=== PATIENT | female | born 1975 | race Caucasian/White ===

== ENCOUNTER 2018-02-18 15:34 | Inpatient (IN) | payer OTHER ==
[~2018-02-18] VITALS: Ht 160 cm; Wt 145.1 kg
[~2018-02-18 15:34] MED LIST: ADVIL100 MG PO; ALBU90OI6 INH; AMOX250 PO; ARIP10 PO; BIRTH CONTROL; CLON.5 PO; CLON1 PO; CYAN500 PO; CYCL10 PO; DESV50 PO; DIVA500EC PO; ERGO50000 PO; HYDPAM25 PO; HYDR1TAB94 PO; LEVSOD75 PO; OXYACE5T PO; OXYC5 PO; PANT40; PANT40 PO; PROM25 PO; RANI150 PO; Verotin-Gr Cap1 EACH PO; ZESTORETIC 20-121 EA PO
[2018-02-18] MEDS ORDERED: LEVSOD125 PO (15:49)
[2018-02-18] MEDS ORDERED: PANT40 PO (15:50)
[2018-02-18] MEDS ORDERED: CETI5 PO (15:50)
[2018-02-18] MEDS ORDERED: AMLODIPINE-VAL1 EAC3 PO (15:51)
[2018-02-18] MEDS ORDERED: LAMO100 PO (15:51)
[2018-02-18] MEDS ORDERED: CYCL10 PO (15:52)
[2018-02-18] MEDS ORDERED: TRAZ50 PO (15:52)
[2018-02-18] MEDS ORDERED: IBUP800 (15:53)
[2018-02-18] MEDS ORDERED: NYST100000 (15:53)
[2018-02-18] MEDS ORDERED: CLON.1 PO (15:54)
[2018-02-18 16:28] LABS: BASOPHILS ABSOLUTE AUTO 0.05 K/mm3 (0.00-0.23); BASOPHILS PERCENT AUTO 0 % (0-2); EOSINOPHILS ABSOLUTE AUTO 0.23 K/mm3 (0.00-0.68); EOSINOPHILS PERCENT AUTO 2 % (0-6); Hematocrit 42.9 % (33.0-51.0); Hemoglobin 14.5 g/dL (11.5-16.0); IMMATURE GRAN PERCENT AUTO 1 % (0-1); LYMPHOCYTES ABSOLUTE AUTO 1.08 K/mm3 (0.84-5.20); LYMPHOCYTES PERCENT AUTO 8 % (21-46); MONOCYTES ABSOLUTE AUTO 0.39 K/mm3 (0.16-1.47); MONOCYTES PERCENT AUTO 3 % (4-13); Mean Corpuscular HGB 32.3 pg (26.0-34.0); Mean Corpuscular HGB Conc 33.8 g/dL (31.5-36.5); Mean Corpuscular Volume 96 fL (80-100); Mean Platelet Volume 8.8 fL (9.1-12.4); NEUTROPHILS PERCENT AUTO 87 % (41-73); Platelet Count 312 K/mm3 (150-400); RDW Coefficient Variation 15.3 % (11.7-14.2); RDW Standard Deviation 53.2 fL (35.1-46.3); Red Blood Cell Count 4.49 M/mm3 (3.80-5.20); White Blood Cell Count 13.75 K/mm3 (4.00-11.30)
[2018-02-18 16:46] LABS: Alanine Aminotransfer (ALT/SGP 44 U/L (12-78); Albumin, Blood 3.6 g/dL (3.4-5.0); Albumin/Globulin Ratio 0.9 (0.8-1.8); Alk Phos 124 U/L (50-136); Anion Gap 7 mmol/L (6-16); Aspartate Aminotrans (AST/SGOT 35 U/L (12-37); Bilirubin, Total 0.3 mg/dL (0.1-1.0); Blood Urea Nitrogen 9 mg/dL (8-24); Bun/Creatinine Ratio 12.7 (12.0-20.0); CO2, Blood 27 mmol/L (21-32); Calcium, Blood 8.9 mg/dL (8.5-10.1); Chloride, Blood 100 mmol/L (98-108); Creatinine, Blood 0.71 mg/dL (0.40-1.00); Globulin, Blood 4.1 g/dL (2.2-4.0); Glomerular Filtration Rate >60 (60-); Glucose, Blood 108 mg/dL (70-99); Potassium, Blood 4.1 mmol/L (3.5-5.5); Sodium, Blood 134 mmol/L (136-145); Total Protein, Blood 7.7 g/dL (6.4-8.2)
[2018-02-18] MEDS ORDERED: COSENTYX S150 MG/1 M SC (18:53)
[2018-02-18 20:26] LABS: Hemoglobin 14.1 g/dL (11.5-16.0)
[2018-02-19 02:27] LABS: BASOPHILS ABSOLUTE AUTO 0.04 K/mm3 (0.00-0.23); BASOPHILS PERCENT AUTO 0 % (0-2); EOSINOPHILS ABSOLUTE AUTO 0.28 K/mm3 (0.00-0.68); EOSINOPHILS PERCENT AUTO 2 % (0-6); Hematocrit 40.1 % (33.0-51.0); Hemoglobin 13.4 g/dL (11.5-16.0); IMMATURE GRAN ABSOLUTE AUTO 0.08 K/mm3 (0.00-0.10); IMMATURE GRAN PERCENT AUTO 1 % (0-1); LYMPHOCYTES ABSOLUTE AUTO 1.39 K/mm3 (0.84-5.20); LYMPHOCYTES PERCENT AUTO 12 % (21-46); MONOCYTES ABSOLUTE AUTO 0.47 K/mm3 (0.16-1.47); MONOCYTES PERCENT AUTO 4 % (4-13); Mean Corpuscular HGB 32.4 pg (26.0-34.0); Mean Corpuscular HGB Conc 33.4 g/dL (31.5-36.5); Mean Corpuscular Volume 97 fL (80-100); Mean Platelet Volume 8.6 fL (9.1-12.4); NEUTROPHILS ABSOLUTE AUTO 9.73 K/mm3 (1.96-9.15); NEUTROPHILS PERCENT AUTO 81 % (41-73); Platelet Count 272 K/mm3 (150-400); RDW Coefficient Variation 15.4 % (11.7-14.2); RDW Standard Deviation 54.5 fL (35.1-46.3); Red Blood Cell Count 4.14 M/mm3 (3.80-5.20); White Blood Cell Count 11.99 K/mm3 (4.00-11.30)
[2018-02-19 02:43] LABS: Anion Gap 6 mmol/L (6-16); Blood Urea Nitrogen 7 mg/dL (8-24); Bun/Creatinine Ratio 9.3 (12.0-20.0); CO2, Blood 28 mmol/L (21-32); Chloride, Blood 102 mmol/L (98-108); Creatinine, Blood 0.76 mg/dL (0.40-1.00); Glomerular Filtration Rate >60 (60-); Glucose, Blood 105 mg/dL (70-99); Potassium, Blood 3.7 mmol/L (3.5-5.5); Sodium, Blood 136 mmol/L (136-145)
[2018-02-19 08:17] LABS: Hematocrit 39.5 % (33.0-51.0); Hemoglobin 13.2 g/dL (11.5-16.0)
[2018-02-19 14:10] LABS: Hemoglobin 13.6 g/dL (11.5-16.0)
[2018-02-20 05:58] LABS: Hemoglobin 13.7 g/dL (11.5-16.0); Mean Corpuscular HGB 32.9 pg (26.0-34.0); Mean Corpuscular HGB Conc 33.4 g/dL (31.5-36.5); Mean Corpuscular Volume 98 fL (80-100); Mean Platelet Volume 8.6 fL (9.1-12.4); Platelet Count 273 K/mm3 (150-400); RDW Coefficient Variation 15.5 % (11.7-14.2); RDW Standard Deviation 55.6 fL (35.1-46.3); Red Blood Cell Count 4.17 M/mm3 (3.80-5.20); White Blood Cell Count 8.65 K/mm3 (4.00-11.30)
[2018-02-20 06:24] LABS: Anion Gap 7 mmol/L (6-16); Blood Urea Nitrogen 5 mg/dL (8-24); Bun/Creatinine Ratio 6.8 (12.0-20.0); CO2, Blood 28 mmol/L (21-32); Calcium, Blood 8.2 mg/dL (8.5-10.1); Chloride, Blood 103 mmol/L (98-108); Creatinine, Blood 0.74 mg/dL (0.40-1.00); Glomerular Filtration Rate >60 (60-); Glucose, Blood 97 mg/dL (70-99); Potassium, Blood 3.7 mmol/L (3.5-5.5); Sodium, Blood 138 mmol/L (136-145)
[2018-02-20 22:22] LABS: Anion Gap 6 mmol/L (6-16); Blood Urea Nitrogen 5 mg/dL (8-24); Bun/Creatinine Ratio 7.6 (12.0-20.0); CO2, Blood 28 mmol/L (21-32); Calcium, Blood 7.9 mg/dL (8.5-10.1); Chloride, Blood 101 mmol/L (98-108); Creatinine, Blood 0.66 mg/dL (0.40-1.00); Glomerular Filtration Rate >60 (60-); Glucose, Blood 119 mg/dL (70-99); Potassium, Blood 3.9 mmol/L (3.5-5.5); Sodium, Blood 135 mmol/L (136-145)
[2018-02-21 11:48] LABS: Adenovirus F 40/41 Not Detected (NOT DETECT); Astrovirus Not Detected (NOT DETECT); Campylobacter Sp Not Detected (NOT DETECT); Cryptosporidium Not Detected (NOT DETECT); Cyclospora Cayetanensis Not Detected (NOT DETECT); E. Coli O157 Not Detected (NOT DETECT); Entamoeba Histolytica Not Detected (NOT DETECT); Enteroaggregative E. coli-EAEC Not Detected (NOT DETECT); Enteropathogenic E. coli-EPEC Not Detected (NOT DETECT); Enterotoxigenic E. coli-ETEC Not Detected (NOT DETECT); Giardia Lamblia Not Detected (NOT DETECT); Norovirus GI/GII Not Detected (NOT DETECT); Plesiomonas Shigelloides Not Detected (NOT DETECT); Rotavirus A Not Detected (NOT DETECT); Salmonella Sp Not Detected (NOT DETECT); Sapovirus Not Detected (NOT DETECT); Shiga Toxin-prod E. coli-STEC Not Detected (NOT DETECT); Shigella/Enteroin E. coli-EIEC Not Detected (NOT DETECT); Vibrio Cholerae Not Detected (NOT DETECT); Vibrio Sp Not Detected (NOT DETECT); Yersinia Enterocolitica Not Detected (NOT DETECT)
== END 2018-02-21 13:39 | disposition left against medical advice (07) | DRG 392 ==
LOC: ER 15:34 → MEDS 17:27
PROVIDERS: Emergency Medicine; Internal Medicine; Internal Medicine Gastroenterology; Nurse Practitioner Acute Care
PROC: 0DJD8ZZ Inspection of Lower Intestinal Tract, Via Natural or Artificial Opening Endoscopic (ICD-10-PCS; principal; 2018-02-20 10:00)
DX: K52.89 Other specified noninfective gastroenteritis and colitis (principal); E87.1 Hypo-osmolality and hyponatremia; K62.5 Hemorrhage of anus and rectum; Z68.43 Body mass index [BMI] 50.0-59.9, adult; K64.8 Other hemorrhoids; K52.9 Noninfective gastroenteritis and colitis, unspecified; I10 Essential (primary) hypertension; F31.9 Bipolar disorder, unspecified; L40.9 Psoriasis, unspecified; E66.01 Morbid (severe) obesity due to excess calories
CPT/HCPCS: 36415; 46600; 74176; 80048; 80053; 83690; 85014; 85018; 85025; 85027; 87507; 96361; 96374; 96375; 96376; 99285; C9113; J0744; J2405; J2550; J3010; J7030; J7120

== ENCOUNTER 2018-02-23 06:47 | Emergency (ER) | payer OTHER ==
[~2018-02-23] VITALS: Ht 160 cm; Wt 140.6 kg
[~2018-02-23 06:47] MED LIST changes: +AMLODIPINE-VAL1 EAC3 PO; +CETI5 PO; +CLON.1 PO; +COSENTYX S150 MG/1 M SC; +IBUP800; +LAMO100 PO; +LEVSOD125 PO; +NYST100000; +TRAZ50 PO
[2018-02-23 07:35] LABS: BASOPHILS ABSOLUTE AUTO 0.05 K/mm3 (0.00-0.23); BASOPHILS PERCENT AUTO 0 % (0-2); EOSINOPHILS ABSOLUTE AUTO 0.22 K/mm3 (0.00-0.68); EOSINOPHILS PERCENT AUTO 2 % (0-6); Hematocrit 42.8 % (33.0-51.0); Hemoglobin 14.4 g/dL (11.5-16.0); IMMATURE GRAN PERCENT AUTO 2 % (0-1); LYMPHOCYTES ABSOLUTE AUTO 1.29 K/mm3 (0.84-5.20); LYMPHOCYTES PERCENT AUTO 10 % (21-46); MONOCYTES ABSOLUTE AUTO 0.67 K/mm3 (0.16-1.47); MONOCYTES PERCENT AUTO 5 % (4-13); Mean Corpuscular HGB 31.7 pg (26.0-34.0); Mean Corpuscular HGB Conc 33.6 g/dL (31.5-36.5); NEUTROPHILS ABSOLUTE AUTO 10.39 K/mm3 (1.96-9.15); NEUTROPHILS PERCENT AUTO 81 % (41-73); Platelet Count 257 K/mm3 (150-400); RDW Coefficient Variation 15.3 % (11.7-14.2); Red Blood Cell Count 4.54 M/mm3 (3.80-5.20); White Blood Cell Count 12.82 K/mm3 (4.00-11.30)
[2018-02-23 07:42] LABS: Mean Corpuscular Volume 94 fL (80-100)
[2018-02-23 07:44] LABS: Alanine Aminotransfer (ALT/SGP 47 U/L (12-78); Albumin, Blood 3.3 g/dL (3.4-5.0); Albumin/Globulin Ratio 0.8 (0.8-1.8); Alk Phos 95 U/L (50-136); Anion Gap 8 mmol/L (6-16); Aspartate Aminotrans (AST/SGOT 43 U/L (12-37); Bilirubin, Total 0.5 mg/dL (0.1-1.0); Blood Urea Nitrogen 6 mg/dL (8-24); Bun/Creatinine Ratio 8.7 (12.0-20.0); CO2, Blood 32 mmol/L (21-32); Calcium, Blood 8.3 mg/dL (8.5-10.1); Chloride, Blood 95 mmol/L (98-108); Creatinine, Blood 0.69 mg/dL (0.40-1.00); Glomerular Filtration Rate >60 (60-); Glucose, Blood 121 mg/dL (70-99); Potassium, Blood 3.5 mmol/L (3.5-5.5); Sodium, Blood 135 mmol/L (136-145); Total Protein, Blood 7.3 g/dL (6.4-8.2)
[2018-02-23] MEDS ORDERED: Zofran Odt4 MG SL (09:42)
== END 2018-02-23 10:03 | disposition home or self-care (01) ==
LOC: ER 06:47
PROVIDERS: Emergency Medicine
DX: K59.00 Constipation, unspecified (principal); F31.9 Bipolar disorder, unspecified; R10.32 Left lower quadrant pain; T47.3X5A Adverse effect of saline and osmotic laxatives, initial encounter; Z88.5 Allergy status to narcotic agent; Z88.1 Allergy status to other antibiotic agents; Z88.8 Allergy status to other drugs, medicaments and biological substances; Z79.899 Other long term (current) drug therapy; F32.9 Major depressive disorder, single episode, unspecified; F17.210 Nicotine dependence, cigarettes, uncomplicated
CPT/HCPCS: 74018; 80053; 83690; 85025; 96361; 96374; 96375; 99283; C9113; J1200; J1630; J1885; J7030

== ENCOUNTER 2018-04-25 08:02 | Day surgery (SDC) | payer OTHER ==
[~2018-04-25] VITALS: Ht 160 cm; Wt 142.9 kg
[~2018-04-25 08:02] MED LIST changes: +AMLODIPINE-VALSARTAN PO; +COSENTYX P150 MG/1 M SC; +Cyclobenzaprine5 MG PO; +MOTRIN PM CAPL1 EACH PO; +Zofran Odt4 MG SL
== END 2018-04-25 11:13 | disposition home or self-care (01) ==
LOC: ORSCMMR 08:02 → ORD 09:30 → ORSCMMR 09:30
PROVIDERS: Internal Medicine Gastroenterology
PROC: 0DBP8ZX Excision of Rectum, Via Natural or Artificial Opening Endoscopic, Diagnostic (ICD-10-PCS; principal; 2018-04-25 09:30)
PROC: 0DBL8ZX Excision of Transverse Colon, Via Natural or Artificial Opening Endoscopic, Diagnostic (ICD-10-PCS; principal; 2018-04-25 09:30)
PROC: 0DBN8ZX Excision of Sigmoid Colon, Via Natural or Artificial Opening Endoscopic, Diagnostic (ICD-10-PCS; principal; 2018-04-25 09:30)
DX: K62.5 Hemorrhage of anus and rectum (principal); D12.3 Benign neoplasm of transverse colon; K63.5 Polyp of colon; K62.1 Rectal polyp; K64.8 Other hemorrhoids; I10 Essential (primary) hypertension; J44.9 Chronic obstructive pulmonary disease, unspecified; K21.9 Gastro-esophageal reflux disease without esophagitis; E66.01 Morbid (severe) obesity due to excess calories; Z68.43 Body mass index [BMI] 50.0-59.9, adult; Z79.899 Other long term (current) drug therapy
CPT/HCPCS: J7120

== ENCOUNTER 2019-03-24 17:02 | Inpatient (IN) | payer OTHER ==
[~2019-03-24] VITALS: Ht 160 cm; Wt 113.6 kg
[~2019-03-24 17:02] MED LIST changes: +IBU800 MG PO; +KHEDEZLA100 MG PO; +Lamictal200 MG PO; -MOTRIN PM CAPL1 EACH PO; +NP THYROID90 MG PO; +Naltrexone HCl50 MG PO; +PRENATAL DHA200 MG PO; +PROG100 PO; +Pepcid40 MG PO; +Zanaflex4 M1 PO; +Zofran8 MG PO
[2019-03-24 17:26] LABS: BASOPHILS ABSOLUTE AUTO 0.03 K/mm3 (0.00-0.23); BASOPHILS PERCENT AUTO 0 % (0-2); EOSINOPHILS ABSOLUTE AUTO 0.05 K/mm3 (0.00-0.68); EOSINOPHILS PERCENT AUTO 0 % (0-6); Hematocrit 36.2 % (33.0-51.0); Hemoglobin 12.5 g/dL (11.5-16.0); IMMATURE GRAN ABSOLUTE AUTO 0.23 K/mm3 (0.00-0.10); IMMATURE GRAN PERCENT AUTO 1 % (0-1); LYMPHOCYTES ABSOLUTE AUTO 1.34 K/mm3 (0.84-5.20); LYMPHOCYTES PERCENT AUTO 8 % (21-46); MONOCYTES ABSOLUTE AUTO 0.69 K/mm3 (0.16-1.47); MONOCYTES PERCENT AUTO 4 % (4-13); Mean Corpuscular HGB 32.7 pg (26.0-34.0); Mean Corpuscular HGB Conc 34.5 g/dL (31.5-36.5); Mean Corpuscular Volume 95 fL (80-100); Mean Platelet Volume 9.7 fL (9.1-12.4); NEUTROPHILS ABSOLUTE AUTO 13.96 K/mm3 (1.96-9.15); NEUTROPHILS PERCENT AUTO 86 % (41-73); Platelet Count 249 K/mm3 (150-400); RDW Coefficient Variation 19.5 % (11.7-14.2); RDW Standard Deviation 68.5 fL (35.1-46.3); Red Blood Cell Count 3.82 M/mm3 (3.80-5.20)
[2019-03-24 17:47] LABS: Alanine Aminotransfer (ALT/SGP 98 U/L (12-78); Albumin/Globulin Ratio 0.8 (0.8-1.8); Alk Phos 375 U/L (50-136); Anion Gap 14 mmol/L (6-16); Aspartate Aminotrans (AST/SGOT 150 U/L (12-37); Bilirubin, Total 1.6 mg/dL (0.1-1.0); Blood Urea Nitrogen 9 mg/dL (8-24); Bun/Creatinine Ratio 15.4 (12.0-20.0); CO2, Blood 29 mmol/L (21-32); Calcium, Blood 9.1 mg/dL (8.5-10.1); Chloride, Blood 89 mmol/L (98-108); Creatinine, Blood 0.59 mg/dL (0.40-1.00); Globulin, Blood 3.8 g/dL (2.2-4.0); Glomerular Filtration Rate >60 (60-); Glucose, Blood 120 mg/dL (70-99); Potassium, Blood 2.9 mmol/L (3.5-5.5); Sodium, Blood 132 mmol/L (136-145); Total Protein, Blood 6.8 g/dL (6.4-8.2)
[2019-03-24 18:04] LABS: Ethanol (Alcohol), Blood, Med <3 mg/dL
[2019-03-24 19:30] LABS: International Normalized Ratio 1.07; Prothrombin Time Results 11.3 Sec (9.7-11.5)
[2019-03-24] MEDS ORDERED: FAMO40 PO (19:54)
[2019-03-24] MEDS ORDERED: ALL DAY ALLERGY10 MG PO (19:55)
[2019-03-24] MEDS ORDERED: Verotin-Gr Cap1 EACH PO (19:56)
[2019-03-24] MEDS ORDERED: MUCUS RELIEF D PO (19:57)
--- NOTE | 2019-03-24 21:36 | NUR ---
ARRIVAL PT ARRIVED TO UNIT APPROX. 2004 VIA [facility] FROM ED. PT ABLE TO TRANSFER FROM [facility] TO BED WITH ONE PERSON ASSIST. PT REPORTS SOME DIZIINESS WITH THIS. PT REPORTS FEELINGS EXTREMLY WEEK COMPARED TO HER BASELINE. ORIENTED PT TO ROOM, UNIT AND POLICIES. ADMISSION PROCESS COMPLETED. ASSESSMENT COMPLETED. VITAL SIGNS STABLE ALTHOUGHT BLOOD PRESURE SLIGHTLY ELVEATED WILL CONTINUE TO MONITOR THIS AND NOTIFIY PHYSICIAN IF CONTINUES. HEART RHYTH SINUS TACHYCARDIA IN 111. TELEMETRY IN PLACE. PT REPROTS NAUSEA BUT NO VOMITING AT THIS TIME. NO S/SX OF ALCHOL WITHDRAW AT THIS TIME. WILL COMPLETED BASELINE CIWA AT THIS TIME AND MONITOR PER ORDERS AFTER THIS. BED IN LOW POSITION, CALL LIGHT IN REACH, PT DENIES ANY NEEDS AT THIS TIME.
--- NOTE | 2019-03-24 21:39 | NUR ---
NOTE PT ARRIVED TO UNIT FROM ED APPROX 2004. AT THIS TIME NOTICED COBAND IN PLACE ON RIGHT WRIST. UPON REMOVAL OF COBAND PART OF AN IV WAS FOUND THIS BE PARTIAL LEFT IN PT SKIN. IV HAD BEEN PULLED OUT MOST OF THE WAY AND KINKED WITH A PORTION STILL REMAINING IN THE PATIENT SKIN. THERE WAS NO DRESSING IN PLACE AND ONLY END OF IV WAS LEFT IN [place]. PT REPORTS IT TO BE EXTREMLY UNCOMFORTABLE. REMOVED THIS AT THIS TIME.
[2019-03-25 04:29] LABS: BASOPHILS ABSOLUTE AUTO 0.03 K/mm3 (0.00-0.23); BASOPHILS PERCENT AUTO 0 % (0-2); EOSINOPHILS ABSOLUTE AUTO 0.03 K/mm3 (0.00-0.68); EOSINOPHILS PERCENT AUTO 0 % (0-6); Hematocrit 32.3 % (33.0-51.0); Hemoglobin 10.8 g/dL (11.5-16.0); IMMATURE GRAN ABSOLUTE AUTO 0.23 K/mm3 (0.00-0.10); IMMATURE GRAN PERCENT AUTO 2 % (0-1); LYMPHOCYTES ABSOLUTE AUTO 3.19 K/mm3 (0.84-5.20); LYMPHOCYTES PERCENT AUTO 21 % (21-46); MONOCYTES ABSOLUTE AUTO 0.83 K/mm3 (0.16-1.47); MONOCYTES PERCENT AUTO 5 % (4-13); Mean Corpuscular HGB 32.8 pg (26.0-34.0); Mean Corpuscular HGB Conc 33.4 g/dL (31.5-36.5); Mean Platelet Volume 9.8 fL (9.1-12.4); NEUTROPHILS ABSOLUTE AUTO 11.16 K/mm3 (1.96-9.15); NEUTROPHILS PERCENT AUTO 72 % (41-73); Platelet Count 200 K/mm3 (150-400); RDW Coefficient Variation 19.6 % (11.7-14.2); RDW Standard Deviation 71.4 fL (35.1-46.3); Red Blood Cell Count 3.29 M/mm3 (3.80-5.20); White Blood Cell Count 15.47 K/mm3 (4.00-11.30)
[2019-03-25 04:31] LABS: Mean Corpuscular Volume 98 fL (80-100)
[2019-03-25 04:48] LABS: Alanine Aminotransfer (ALT/SGP 81 U/L (12-78); Albumin, Blood 2.7 g/dL (3.4-5.0); Albumin/Globulin Ratio 0.8 (0.8-1.8); Alk Phos 341 U/L (50-136); Anion Gap 4 mmol/L (6-16); Aspartate Aminotrans (AST/SGOT 120 U/L (12-37); Bilirubin, Total 1.7 mg/dL (0.1-1.0); Blood Urea Nitrogen 10 mg/dL (8-24); Bun/Creatinine Ratio 16.8 (12.0-20.0); CO2, Blood 35 mmol/L (21-32); Calcium, Blood 7.7 mg/dL (8.5-10.1); Chloride, Blood 96 mmol/L (98-108); Globulin, Blood 3.3 g/dL (2.2-4.0); Glomerular Filtration Rate >60 (60-); Glucose, Blood 109 mg/dL (70-99); Potassium, Blood 3.2 mmol/L (3.5-5.5); Sodium, Blood 135 mmol/L (136-145)
--- NOTE | 2019-03-25 05:39 | NUR ---
SHIFT SUMMARY PT PLEASANT, COOPERATIVE AND USES CALL LIGHT APPROPRIATELY. PT REMAINS A&OX4. ASSESSMENT FINDINGS REMAIN UNCHANGED. VITAL SIGNS STABLE ALTHOUGHT BLOOD PRESSURE ELEVATED START OF SHIFT. PRN MEDICAITON GIVEN PER EMAR. REASSESSED AND STILL ELVEATED. RECIEVED ORDERS FOR PRN HYDRALAZINE. TOOK BLOOD PRESSURE BEFORE GIVING THIS AND BLOOD PRESURE HAD COME DOWN. DID NOT GIVEN HYDRALAZINE AT THIS TIME. CONTINUED TO MONITOR THIS FOR REST OF SHIFT. AFTER ARRIVING TO UNIT PT HAD A HARD TIME GETTING COMFORTABEL TO FALL ASLEEP. AFTER USE OF MEDICATION, COOL RAG, RELAXATION TECHNIQUES AND FAN PT WAS ABLE TO GET COMFORTABLE AND FALL ASLEEP. PT ABLE TO REST WELL AFTER THIS. BED IN LOW POSITION, CALL LIGHT IN REACH AND PT DENIES ANY NEEDS AT THIS TIME. WILL [facility] RN.
[2019-03-25 06:33] LABS: Source, Urine Clean Catch
[2019-03-25 06:42] LABS: Appearance, Urine Clear (Clear); Blood, Urine Neg (Neg); Color, Urine Amber (P-Yellow); Glucose Qualitative, Urine Neg (Neg); Ketones, Urine 2+ (Neg); Leukocyte Esterase, Urine 1+ (Neg); Nitrite, Urine Pos (Neg); Protein, Urine 2+ (Neg); Urobilinogen, Urine 3+ (Normal)
[2019-03-25 06:52] LABS: Bilirubin, Urine 2+ (Neg)
[2019-03-25 06:56] LABS: Bacteria Few /hpf; Red Blood Cells, Urine 0-2 /hpf (0-2); Squamous Epithelial Cells Few /hpf (Few)
[2019-03-25 06:57] LABS: Granular Casts 0-2 /lpf (0); Mucus Light (0-Heavy)
[2019-03-25 06:59] LABS: U Amphetamine Screen Not Detected; U Barbituate Screen Not Detected; U Benzodiazapine Screen Not Detected; U Buprenorphine Screen Not Detected; U Cannabinoids Screen DETECTED; U Cocaine Screen Not Detected; U Methadone Screen Not Detected; U Methamphetamine Screen Not Detected; U Opiates Screen DETECTED; U Oxycodone Screen Not Detected; U Phencyclidine Screen Not Detected; U Propoxyphene Screen Not Detected
--- NOTE | 2019-03-25 09:27 | NUR ---
NURSING PCU DAYSHIFT: Assumed care of pt at approx 0700. A/O, cooperative w/most aspects of care. C/O 6/10 pain located in abd and back, cries out for pain meds w/movement inbetween dosing. Has spent majority of a.m. sleeping. Skin is intact w/no breakdown noted. Tele in place, ST, no c/o CP/pressure, SBP 130's, no noted edema. L/S fairly cta t/o, snores while sleeping w/brief periods of apnea, O2 sat mid 90's on RA, no noted cough. Abd soft, BT+, FC w/stat lock in place, draining dark/tea colored urine. PIV x2, NS infusing at 150cc/hr upon initial assessment. Pt denies any current needs or questions regarding plan of care. Call light in reach and pt is able to use w/o difficulty. Remains NPO at this time as per d/o. Awaiting rounding from PMD, cont to monitor for any changes.
[2019-03-25] MEDS ORDERED: Zanaflex4 M1 PO (14:53)
--- NOTE | 2019-03-25 16:33 | NUR ---
NURSING PCU TRANSFER SUMMARY: No significant changes noted t/o the shift. Pt has slept through majority of day. Seen by PMD, new d/o received. Diet increased to CL, IVF continues to infuse until pt has sufficient PO intake. Changed to medical status w/o tele, bed assignment received, awaiting telephone report to accepting RN. No s/s of acute distress at this time, call light in reach, cont to monitor until xfer is completed.
[2019-03-26 04:45] LABS: BASOPHILS ABSOLUTE AUTO 0.05 K/mm3 (0.00-0.23); BASOPHILS PERCENT AUTO 0 % (0-2); EOSINOPHILS ABSOLUTE AUTO 0.06 K/mm3 (0.00-0.68); EOSINOPHILS PERCENT AUTO 1 % (0-6); Hemoglobin 9.3 g/dL (11.5-16.0); IMMATURE GRAN ABSOLUTE AUTO 0.41 K/mm3 (0.00-0.10); IMMATURE GRAN PERCENT AUTO 3 % (0-1); LYMPHOCYTES ABSOLUTE AUTO 3.22 K/mm3 (0.84-5.20); LYMPHOCYTES PERCENT AUTO 24 % (21-46); MONOCYTES ABSOLUTE AUTO 0.87 K/mm3 (0.16-1.47); MONOCYTES PERCENT AUTO 7 % (4-13); Mean Corpuscular HGB 32.7 pg (26.0-34.0); Mean Corpuscular HGB Conc 33.2 g/dL (31.5-36.5); Mean Corpuscular Volume 99 fL (80-100); NEUTROPHILS ABSOLUTE AUTO 8.57 K/mm3 (1.96-9.15); NEUTROPHILS PERCENT AUTO 65 % (41-73); Platelet Count 209 K/mm3 (150-400); RDW Coefficient Variation 19.6 % (11.7-14.2); RDW Standard Deviation 70.4 fL (35.1-46.3); Red Blood Cell Count 2.84 M/mm3 (3.80-5.20); White Blood Cell Count 13.18 K/mm3 (4.00-11.30)
[2019-03-26 05:16] LABS: Alanine Aminotransfer (ALT/SGP 88 U/L (12-78); Albumin, Blood 2.4 g/dL (3.4-5.0); Albumin/Globulin Ratio 0.8 (0.8-1.8); Alk Phos 322 U/L (50-136); Anion Gap 6 mmol/L (6-16); Aspartate Aminotrans (AST/SGOT 180 U/L (12-37); Bilirubin, Total 1.5 mg/dL (0.1-1.0); Blood Urea Nitrogen 9 mg/dL (8-24); Bun/Creatinine Ratio 15.2 (12.0-20.0); CO2, Blood 32 mmol/L (21-32); Calcium, Blood 7.2 mg/dL (8.5-10.1); Chloride, Blood 96 mmol/L (98-108); Creatinine, Blood 0.59 mg/dL (0.40-1.00); Free Thyroxine 0.99 ng/dL (0.70-1.60); Globulin, Blood 3.2 g/dL (2.2-4.0); Glomerular Filtration Rate >60 (60-); Glucose, Blood 100 mg/dL (70-99); Potassium, Blood 3.3 mmol/L (3.5-5.5); Sodium, Blood 134 mmol/L (136-145); Total Protein, Blood 5.6 g/dL (6.4-8.2)
[2019-03-26 05:21] LABS: Triiodothyronine, Free 2.03 pg/mL (2.18-3.98)
--- NOTE | 2019-03-26 05:52 | NUR ---
SHIFT SUMMARY PT SLEPT A FEW HOURS T/O NIGHT, REPORTS FEELING RESTLESS & UNABLE TO SLEEP SINCE 0300 THIS AM, TRAZADONE GIVEN PER ORDERS & PT WAS UNABLE TO FALL BACK ASLEEP. AOX4. VSS. DENIES NAUSEA OR DYSPNEA. LUNGS SOUND COURSE T/O, SPO2 >90% ON RA, HAS OCCASIONAL PRODUCTIVE COUGH W/THICK WHITE SPUTUM, THIS AM PT STATES TAKES INHALER @HOME CALLED "PROVENTIL/PROAIR," INFORMED PT I WOULD PASS INFO ON TO DAY HOSPITALIST/NURSE. REPORTS 6-910 PAIN IN RLQ ABD & MID/LOW BACK, MEDICATED W/IBPROPHEN & ZANAFLEX 1X EACH PER ORDERS, ALSO PLACED HEATING PAD. REPORTED FEELING ANXIOUS LAST NIGHT MEDICATED 1X W/KLONOPIN PER ORDERS. CIWA RANGING 0-3, NO TREMORS NOTED. PT RECIEVED BED BATH LAST NIGHT. CHESTER IS PATENT & DRAINING CLEAR DARK ORANGE/RED OUTPUT. TOLERATING CLEAR LIQUID DIET. CALL LIGHT IN REACH.
[2019-03-26] MEDS ORDERED: Vsl#3 Capsule1 EACH PO (12:37)
--- NOTE | 2019-03-26 13:38 | NUR ---
DISCHARGE THIS AM PT STATE FEELING IMPROVED. NO NAUSEA, NO DIARRHEA. STATE WEAKNESS IMPROVING. DR CASTILLO NOTIFIED, BRIGGS D/C'D, IVF D/C'D, DIET ADVANCED. PT TOLERATE DIET. DR CASTILLO IN TO SEE PT & , STATE SHE MAY GO HOME TODAY. D/C INSTRUCT REVIEWED WITH PT. IV D/C'D INTACT. NEW SCRIPTS FAXED TO [facility]. HOME MEDS HELD IN PHARMACY RETREIVED & RETURNED TO PT. OUT TO GET PT SOME CLOTHES & WILL RETURN APPROX 1500 FOR TRANSPORTATION HOME.
== END 2019-03-26 14:27 | disposition home or self-care (01) | DRG 392 ==
LOC: ER 17:02 → PCU 19:28 → MEDS 03-25 18:28
PROVIDERS: Emergency Medicine; Internal Medicine; Nurse Practitioner Acute Care; ADMIT Internal Medicine
DX: K29.20 Alcoholic gastritis without bleeding (principal); Z68.42 Body mass index [BMI] 45.0-49.9, adult; F10.20 Alcohol dependence, uncomplicated; A08.4 Viral intestinal infection, unspecified; G40.909 Epilepsy, unspecified, not intractable, without status epilepticus; E87.6 Hypokalemia; E83.42 Hypomagnesemia; E66.01 Morbid (severe) obesity due to excess calories; E03.9 Hypothyroidism, unspecified; F31.9 Bipolar disorder, unspecified; I10 Essential (primary) hypertension; G47.33 Obstructive sleep apnea (adult) (pediatric); F17.210 Nicotine dependence, cigarettes, uncomplicated; D64.9 Anemia, unspecified; E86.0 Dehydration; K21.9 Gastro-esophageal reflux disease without esophagitis; F19.10 Other psychoactive substance abuse, uncomplicated; F41.1 Generalized anxiety disorder; G47.00 Insomnia, unspecified
CPT/HCPCS: 36415; 71045; 74177; 80053; 81001; 81025; 83605; 83690; 83735; 83880; 84439; 84443; 84481; 85025; 85610; 87086; 96365; 96366; 96375; 99285-25; C9113; G0480; J1170; J1650; J2405; J3010; J3411; J3475; J3480; J7030; J7042; Q9967

== ENCOUNTER 2019-03-31 11:58 | Emergency (ER) | payer OTHER ==
[~2019-03-31] VITALS: Ht 160 cm; Wt 113.4 kg
[~2019-03-31 11:58] MED LIST changes: +ALL DAY ALLERGY10 MG PO; +FAMO40 PO; +MUCUS RELIEF D PO; +Vsl#3 Capsule1 EACH PO
[2019-03-31 13:41] LABS: BASOPHILS ABSOLUTE AUTO 0.02 K/mm3 (0.00-0.23); BASOPHILS PERCENT AUTO 0 % (0-2); EOSINOPHILS ABSOLUTE AUTO 0.09 K/mm3 (0.00-0.68); EOSINOPHILS PERCENT AUTO 1 % (0-6); Hematocrit 31.5 % (33.0-51.0); Hemoglobin 10.2 g/dL (11.5-16.0); IMMATURE GRAN ABSOLUTE AUTO 0.19 K/mm3 (0.00-0.10); IMMATURE GRAN PERCENT AUTO 2 % (0-1); LYMPHOCYTES ABSOLUTE AUTO 1.58 K/mm3 (0.84-5.20); LYMPHOCYTES PERCENT AUTO 15 % (21-46); MONOCYTES PERCENT AUTO 5 % (4-13); Mean Corpuscular HGB 32.9 pg (26.0-34.0); Mean Corpuscular HGB Conc 32.4 g/dL (31.5-36.5); Mean Platelet Volume 9.3 fL (9.1-12.4); NEUTROPHILS ABSOLUTE AUTO 8.17 K/mm3 (1.96-9.15); NEUTROPHILS PERCENT AUTO 77 % (41-73); NRBC ABSOLUTE 0.02 K/mm3 (0.00-0.02); NRBC Auto 0.2 /100 WBC (0.0-0.2); Platelet Count 478 K/mm3 (150-400); RDW Coefficient Variation 20.3 % (11.7-14.2); RDW Standard Deviation 76.7 fL (35.1-46.3); White Blood Cell Count 10.55 K/mm3 (4.00-11.30)
[2019-03-31 13:47] LABS: Mean Corpuscular Volume 102 fL (80-100)
[2019-03-31 13:55] LABS: Alanine Aminotransfer (ALT/SGP 86 U/L (12-78); Albumin, Blood 3.1 g/dL (3.4-5.0); Albumin/Globulin Ratio 0.8 (0.8-1.8); Alk Phos 274 U/L (50-136); Anion Gap 7 mmol/L (6-16); Aspartate Aminotrans (AST/SGOT 88 U/L (12-37); Bilirubin, Total 0.8 mg/dL (0.1-1.0); Blood Urea Nitrogen 5 mg/dL (8-24); CO2, Blood 30 mmol/L (21-32); Calcium, Blood 9.1 mg/dL (8.5-10.1); Chloride, Blood 102 mmol/L (98-108); Creatinine, Blood 0.63 mg/dL (0.40-1.00); Globulin, Blood 3.7 g/dL (2.2-4.0); Glomerular Filtration Rate >60 (60-); Glucose, Blood 87 mg/dL (70-99); Potassium, Blood 3.1 mmol/L (3.5-5.5); Sodium, Blood 139 mmol/L (136-145); Total Protein, Blood 6.8 g/dL (6.4-8.2); Troponin I <0.015 ng/mL (0.000-0.040)
== END 2019-03-31 14:45 | disposition home or self-care (01) ==
LOC: ER 11:58
PROVIDERS: Emergency Medicine
DX: M79.602 Pain in left arm (principal); F31.9 Bipolar disorder, unspecified; F41.9 Anxiety disorder, unspecified; L40.9 Psoriasis, unspecified; F17.210 Nicotine dependence, cigarettes, uncomplicated; Z88.5 Allergy status to narcotic agent; Z79.899 Other long term (current) drug therapy
CPT/HCPCS: 36415; 80053; 84484; 85025; 93005; 93010; 93971; 99284-25

== ENCOUNTER → 2019-06-04 | Outpatient (CLI) | payer OTHER ==
[~2019-06-04] MED LIST changes: +Estrogel93 GM ID; +Flonase 0.05% N16 GM; +GABA300 PO; +LAMO25 PO; +LEVSOD100 PO
[2019-06-05 16:07] LABS: HPV 16 Negative (Negative); HPV 18 Negative (Negative); HPV OTHER HR TYPES Negative (Negative)
== END | disposition home or self-care (01) ==
LOC: LAB SHORT 12:25 → LAB 12:25
PROVIDERS: Nurse Practitioner Women's Health
DX: Z91.89 Other specified personal risk factors, not elsewhere classified (principal)
CPT/HCPCS: 87624; G0123

== ENCOUNTER → 2019-06-05 | Outpatient (CLI) | payer OTHER ==
[2019-06-05 19:01] LABS: BASOPHILS ABSOLUTE AUTO 0.05 K/mm3 (0.00-0.23); BASOPHILS PERCENT AUTO 1 % (0-2); EOSINOPHILS ABSOLUTE AUTO 0.07 K/mm3 (0.00-0.68); EOSINOPHILS PERCENT AUTO 1 % (0-6); Hematocrit 35.3 % (33.0-51.0); Hemoglobin 11.5 g/dL (11.5-16.0); IMMATURE GRAN ABSOLUTE AUTO 0.05 K/mm3 (0.00-0.10); IMMATURE GRAN PERCENT AUTO 1 % (0-1); LYMPHOCYTES ABSOLUTE AUTO 2.05 K/mm3 (0.84-5.20); LYMPHOCYTES PERCENT AUTO 19 % (21-46); MONOCYTES ABSOLUTE AUTO 0.47 K/mm3 (0.16-1.47); MONOCYTES PERCENT AUTO 4 % (4-13); Mean Corpuscular HGB 31.1 pg (26.0-34.0); Mean Corpuscular HGB Conc 32.6 g/dL (31.5-36.5); Mean Corpuscular Volume 95 fL (80-100); Mean Platelet Volume 9.2 fL (9.1-12.4); NEUTROPHILS ABSOLUTE AUTO 8.28 K/mm3 (1.96-9.15); NEUTROPHILS PERCENT AUTO 75 % (41-73); Platelet Count 406 K/mm3 (150-400); RDW Coefficient Variation 19.9 % (11.7-14.2); RDW Standard Deviation 68.5 fL (35.1-46.3); White Blood Cell Count 10.97 K/mm3 (4.00-11.30)
[2019-06-05 19:18] LABS: Anion Gap 8 mmol/L (6-16); Blood Urea Nitrogen 6 mg/dL (8-24); Bun/Creatinine Ratio 8.8 (12.0-20.0); CO2, Blood 28 mmol/L (21-32); Calcium, Blood 9.1 mg/dL (8.5-10.1); Chloride, Blood 100 mmol/L (98-108); Creatinine, Blood 0.68 mg/dL (0.40-1.00); Glomerular Filtration Rate >60 (60-); Glucose, Blood 96 mg/dL (70-99); Potassium, Blood 3.3 mmol/L (3.5-5.5); Sodium, Blood 136 mmol/L (136-145); Thyroid Stimulating Hormone 6.339 uIU/mL (0.360-4.800)
== END | disposition home or self-care (01) ==
LOC: LAB SHORT 18:53 → LAB EV 18:53
PROVIDERS: Physician Assistant Surgical
DX: F10.20 Alcohol dependence, uncomplicated (principal); R20.2 Paresthesia of skin
CPT/HCPCS: 80048; 82607; 84439; 84443; 84481; 85025

== ENCOUNTER 2019-07-27 23:03 | Inpatient (IN) | payer OTHER ==
[~2019-07-27] VITALS: Ht 160 cm; Wt 106.3 kg
[~2019-07-27 23:03] MED LIST changes: -Estrogel93 GM ID; -Flonase 0.05% N16 GM; -GABA300 PO; -LAMO25 PO; -LEVSOD100 PO
[2019-07-27 23:23] LABS: BASOPHILS ABSOLUTE AUTO 0.03 K/mm3 (0.00-0.23); BASOPHILS PERCENT AUTO 0 % (0-2); EOSINOPHILS ABSOLUTE AUTO 0.28 K/mm3 (0.00-0.68); EOSINOPHILS PERCENT AUTO 3 % (0-6); Hematocrit 39.4 % (33.0-51.0); Hemoglobin 13.2 g/dL (11.5-16.0); IMMATURE GRAN ABSOLUTE AUTO 0.05 K/mm3 (0.00-0.10); IMMATURE GRAN PERCENT AUTO 1 % (0-1); LYMPHOCYTES ABSOLUTE AUTO 2.96 K/mm3 (0.84-5.20); LYMPHOCYTES PERCENT AUTO 30 % (21-46); MONOCYTES PERCENT AUTO 4 % (4-13); Mean Corpuscular HGB 31.8 pg (26.0-34.0); Mean Corpuscular HGB Conc 33.5 g/dL (31.5-36.5); Mean Corpuscular Volume 95 fL (80-100); Mean Platelet Volume 8.8 fL (9.1-12.4); NEUTROPHILS ABSOLUTE AUTO 6.32 K/mm3 (1.96-9.15); NEUTROPHILS PERCENT AUTO 63 % (41-73); Platelet Count 341 K/mm3 (150-400); RDW Coefficient Variation 18.1 % (11.7-14.2); RDW Standard Deviation 58.4 fL (35.1-46.3); Red Blood Cell Count 4.15 M/mm3 (3.80-5.20); White Blood Cell Count 10.04 K/mm3 (4.00-11.30)
[2019-07-27 23:30] LABS: Calcium, Ionized (POC) 1.07 mmol/L (1.10-1.46); Chloride (POC) 100 mmol/L (98-108); Glucose (ISTAT POC) 158 mg/dL (70-99); Hemoglobin (POC) 13.6 g/dL (12.0-16.0); Sodium (POC) 137 mmol/L (135-148); Total CO2 (POC) 25 mmol/L (21-32)
[2019-07-27 23:47] LABS: Acetaminophen, Random <2.0 ug/mL (10.0-30.0); Alanine Aminotransfer (ALT/SGP 31 U/L (12-78); Albumin, Blood 3.1 g/dL (3.4-5.0); Albumin/Globulin Ratio 0.9 (0.8-1.8); Alk Phos 126 U/L (50-136); Anion Gap 13 mmol/L (6-16); Aspartate Aminotrans (AST/SGOT 41 U/L (12-37); Bilirubin, Total 0.4 mg/dL (0.1-1.0); Blood Urea Nitrogen 6 mg/dL (8-24); Bun/Creatinine Ratio 8.3 (12.0-20.0); CO2, Blood 23 mmol/L (21-32); Calcium, Blood 8.3 mg/dL (8.5-10.1); Chloride, Blood 104 mmol/L (98-108); Creatinine, Blood 0.72 mg/dL (0.40-1.00); Ethanol (Alcohol), Blood, Med 189 mg/dL; Globulin, Blood 3.6 g/dL (2.2-4.0); Glomerular Filtration Rate >60 (60-); Glucose, Blood 153 mg/dL (70-99); Potassium, Blood 3.1 mmol/L (3.5-5.5); Salicylate 1.8 mg/dL (2.8-20.0); Sodium, Blood 140 mmol/L (136-145); Total Protein, Blood 6.7 g/dL (6.4-8.2)
[2019-07-28 00:53] LABS: Source, Urine Catheter
--- NOTE | 2019-07-28 02:22 | NUR ---
PATIENT ARRIVED TO ICU 6 VIA GURNEY FROM ED. PATIENT A&O X3 COOPERATIVE WITH CARE. PATIENT VERBALIZED THAT SHE DID TAKE 2 HAND FULL OF ALL OF HER MEDICATIONS MIXED TOGETHER BECAUSE SHE DIDN'T WANT TO BE HERE ANYMORE. PATIENT VERBALIZED UNDERSTANDING THAT SHE IS ON A 2 MD HOLD AND UNDERSTANDING THE RESTRICTIONS THAT GO WITH THIS. PATIENTS IN TO SEE PATIENT FOR SHORT TIME THEN GOING HOME.
--- NOTE | 2019-07-28 05:17 | NUR ---
POISON CONTROL RECOMMENDATIONS: LABS REVIEWED (TOX SCREEN PENDING), VS, & RHYTHM REVIEWED. ADD ASA LEVEL W NEXT DRAW, ADD MAG TO ADMIT LABS, MAXIMIZE K+ >4, AND MAGNESIUM >2.
[2019-07-28 05:39] LABS: Appearance, Urine Clear (Clear); Bilirubin, Urine Neg (Neg); Blood, Urine Neg (Neg); Color, Urine Yellow (P-Yellow); Glucose Qualitative, Urine Neg (Neg); Ketones, Urine Neg (Neg); Leukocyte Esterase, Urine Neg (Neg); Nitrite, Urine Neg (Neg); Protein, Urine Neg (Neg); Urobilinogen, Urine NORM (Normal)
[2019-07-28 05:40] LABS: U Amphetamine Screen Not Detected; U Barbituate Screen Not Detected; U Benzodiazapine Screen Not Detected; U Buprenorphine Screen Not Detected; U Cannabinoids Screen DETECTED; U Cocaine Screen Not Detected; U Methadone Screen Not Detected; U Methamphetamine Screen Not Detected; U Opiates Screen Not Detected; U Oxycodone Screen Not Detected; U Phencyclidine Screen Not Detected; U Propoxyphene Screen Not Detected
[2019-07-28] MEDS ORDERED: Flonase 0.05% N16 GM (05:52)
[2019-07-28] MEDS ORDERED: LAMO25 PO (05:53)
[2019-07-28] MEDS ORDERED: LEVSOD100 PO (05:54)
[2019-07-28] MEDS ORDERED: CETI5 PO (05:56)
[2019-07-28] MEDS ORDERED: GABA300 PO (05:59)
[2019-07-28] MEDS ORDERED: Estrogel93 GM ID (06:00)
--- NOTE | 2019-07-28 09:36 | NUR ---
ASSUMED CARE AT 0700. REPORT FROM JUSTICE GAONA. PT ON 2MD HOLD. 1:1 SITTER AT BEDSIDE. PT CALM AND COOPERATIVE. WHEN ASKED ABOUT SI, PT STATES "NOT RIGHT NOW." PLEASANT, ASSISTS c CARE. REPORTS HX OF SI. STATES SHE LIVES AT HOME c SO AND 3 ROOMMATES, STATES THIS SAFE PLACE FOR HER. U[facility] ON [facility]. WILL MONITOR ELECTROLYTES AND PROLONGED QT. WILL CONTINUE TO MONITOR.
--- NOTE | 2019-07-28 10:50 | NUR ---
Safety Plan completed. Patient cooperative and engage in plan development. Her thoughts now are that her attempt was "stupid". Reports she took handful of all of her pills--she was lonely and felt rejected. Roommate saw pile of pills and called EMS, as patient told him she took pills. History--sees Dr. Rodriguez, [facility]. Needs therapist and wants "DBT not CBT". 20 years, 2 sons in 20s. She reports loosing 100 lbs since January this year. She reports been sick, vomiting at times. Not sure if this is a factor not of 100 lb loss. Grew up with dysfuncyional famly in [facility] [facility]. Family hx positive for mother, father , brother with depression. Older brother committed suicice. Sister was "severe alcholic and ". Repors she has BA in Business and did work for [employer] on homeless mentally ill. She is on 2 MD Hold. [facility] [employer] Technical Lead arrived whil I was still in ICU. Dr. Castillouff given report of patient denying intentions of suicide currently Josephine Rodriguez M.Ed., [facility]
--- NOTE | 2019-07-28 11:19 | NUR ---
PT UP TO BATHROOM IN ROOM. STEADY GAIT. PT DENIES SI AT THIS TIME. PT STATES SHE IS HOPING TO GO HOME AFTER [facility] CONSULT. CALM AND COOPERATIVE. PT CALLED WHO TOLD HER HE WOULD COME IN TODAY. CALL LIGHT IN REACH. WILL CONTINUE TO MONITOR.
[2019-07-28 11:58] LABS: Anion Gap 6 mmol/L (6-16); Blood Urea Nitrogen 6 mg/dL (8-24); Bun/Creatinine Ratio 10.8 (12.0-20.0); CO2, Blood 23 mmol/L (21-32); Calcium, Blood 7.5 mg/dL (8.5-10.1); Chloride, Blood 112 mmol/L (98-108); Creatinine, Blood 0.56 mg/dL (0.40-1.00); Glomerular Filtration Rate >60 (60-); Glucose, Blood 76 mg/dL (70-99); Magnesium, Blood 2.1 mg/dL (1.6-2.4); Sodium, Blood 141 mmol/L (136-145)
--- NOTE | 2019-07-28 15:02 | NUR ---
PT AWAITING DR SNYDER AND DR CASTILLO ASSESSMENT. PT CALM AND COOPERATIVE. INDEPENDENT IN ROOM. VSS. DENIES SI. WILL CONTINUE TO MONITOR.
--- NOTE | 2019-07-28 15:35 | NUR ---
DR. VARGASUFF IN TO SEE PT PLANS FOR D/C SUICIDE PRECAUTIONS AND DROPPING 2MD HOLD.
--- NOTE | 2019-07-28 16:17 | NUR ---
PT UP FOR DISCHARGE PER DR CASTILLO AND DR SNYDER. D/C INSTRUCTIONS GIVEN. PT TO F/U c THERAPIST TOMORROW AND PCP IN TWO WEEKS. PT GIVEN INSTRUCTIONS FOR SUICIDE PREVENTION, HOTLINE AND SAFETY PLAN. PT VERBALIZED UNDERSTANDING OF D/C INSTRUCTIONS. MEDICATION RETRIEVED FROM PHARMACY AND GIVEN TO PT. ALL BELONGINGS HOME c PT. PT OTD duncan YOUNG.
== END 2019-07-28 16:30 | disposition home or self-care (01) | DRG 918 ==
LOC: ER 23:03 → ICUE 07-28 02:50 → ICUW 07-28 03:00 → ICUE 07-28 04:54
PROVIDERS: Emergency Medicine; ADMIT Hospitalist
DX: T42.8X1A Poisoning by antiparkinsonism drugs and other central muscle-tone depressants, accidental (unintentional), initial encounter (principal); F33.9 Major depressive disorder, recurrent, unspecified; T42.6X1A Poisoning by other antiepileptic and sedative-hypnotic drugs, accidental (unintentional), initial encounter; T43.211A Poisoning by selective serotonin and norepinephrine reuptake inhibitors, accidental (unintentional), initial encounter; T38.1X1A Poisoning by thyroid hormones and substitutes, accidental (unintentional), initial encounter; T42.4X1A Poisoning by benzodiazepines, accidental (unintentional), initial encounter; E03.9 Hypothyroidism, unspecified; G40.909 Epilepsy, unspecified, not intractable, without status epilepticus; E87.6 Hypokalemia; E83.42 Hypomagnesemia; I95.9 Hypotension, unspecified; L40.9 Psoriasis, unspecified; Z88.1 Allergy status to other antibiotic agents; Z88.8 Allergy status to other drugs, medicaments and biological substances; Z79.899 Other long term (current) drug therapy
CPT/HCPCS: 36415; 51702; 80047; 80048; 80053; 81003; 81025; 83735; 84443; 85014; 85025; 93005; 93010; 96360-59; 96361-59; 99285-25; G0480; J1650; J3475; J3480; J7030; J7040

== ENCOUNTER 2019-09-14 16:00 | Emergency (ER) | payer OTHER ==
[~2019-09-14] VITALS: Ht 160 cm; Wt 95.2 kg
[~2019-09-14 16:00] MED LIST changes: +Estrogel93 GM ID; +Flonase 0.05% N16 GM; +GABA300 PO; +LAMO25 PO; +LEVSOD100 PO
[2019-09-14] MEDS ORDERED: Cetirizine HCl10 MG PO (16:17)
[2019-09-14] MEDS ORDERED: ESTRADIOL42.5 GM VG (16:17)
== END 2019-09-14 17:13 | disposition left against medical advice (07) ==
LOC: ER 16:00
DX: Z53.21 Procedure and treatment not carried out due to patient leaving prior to being seen by health care provider (principal)

== ENCOUNTER → 2019-10-22 | Outpatient (CLI) | payer OTHER ==
[~2019-10-22] MED LIST changes: +Cetirizine HCl10 MG PO; +ESTRADIOL42.5 GM VG
== END | disposition home or self-care (01) ==
LOC: LAB SHORT 07:48 → PLD 07:48
DX: B35.1 Tinea unguium (principal)
CPT/HCPCS: 88305; 88312

== ENCOUNTER → 2020-09-03 | Outpatient (CLI) | payer MEDICARE, OTHER ==
[2020-09-06 13:09] LABS: ANA DIRECT Negative (Negative)
[2020-09-06 21:09] LABS: CCP ANTIBODIES IGG/IGA 6 units (0-19)
== END | disposition home or self-care (01) ==
LOC: PLD 15:40 → LAB SHORT 15:40
PROVIDERS: Family Medicine
DX: M19.049 Primary osteoarthritis, unspecified hand (principal)
CPT/HCPCS: 84550; 85651; 86038; 86200; 86430

== ENCOUNTER → 2021-01-26 | Outpatient (CLI) | payer MEDICARE, OTHER | END | disposition home or self-care (01) | LOC: LAB SHORT 15:33 → LAB 15:33 | DX: L30.4 Erythema intertrigo (principal) | CPT/HCPCS: 36415; 80053 ==

== ENCOUNTER → 2021-03-30 | Outpatient (CLI) | payer MEDICARE, OTHER ==
[2021-03-30 17:55] LABS: Source, Urine Clean Catch
[2021-03-30 20:25] LABS: Appearance, Urine Cloudy (Clear); Bilirubin, Urine Neg (Neg); Blood, Urine 5+ (Neg); Color, Urine Red (P-Yellow); Glucose Qualitative, Urine Neg (Neg); Ketones, Urine 1+ (Neg); Leukocyte Esterase, Urine 2+ (Neg); Nitrite, Urine Neg (Neg); Protein, Urine 3+ (Neg); Specific Gravity, Urine 1.025 (1.003-1.022); Urobilinogen, Urine NORM (Normal)
[2021-03-30 20:39] LABS: Red Blood Cells, Urine TNTC /hpf (0-2)
[2021-03-30 20:41] LABS: Bacteria Many /hpf; Squamous Epithelial Cells Mod /hpf (Few); White Blood Cells, Urine 25-50 /hpf (0-5)
== END | disposition home or self-care (01) ==
LOC: LAB 17:53 → LAB SHORT 17:53
PROVIDERS: Obstetrics & Gynecology
DX: R39.14 Feeling of incomplete bladder emptying (principal)
CPT/HCPCS: 81001; 87086

== ENCOUNTER → 2022-08-27 | Outpatient (CLI) | payer MEDICARE, OTHER | LOC: LAB 16:11 → LAB SHORT 16:11 | DX: N76.4 Abscess of vulva (principal) | CPT/HCPCS: 87070; 87205 ==